=== PATIENT | male | born 1965 | race Caucasian/White ===

== ENCOUNTER 2017-11-09 11:08 | Emergency (ER) | payer SELFPAY ==
[~2017-11-09] VITALS: Ht 172.7 cm; Wt 75.0 kg
[2017-11-09 11:22] VITALS: BP 150/84; PULSE 90; RESP 16; TEMP 98; O2SAT 99
--- NOTE | 2017-11-09 11:44 | PD ---
HPI Chief Complaint: Skin Problem Time Seen by Provider: 11:39 Travel History International Travel<30 days: No Contact w/Intl Traveler<30days: No Traveled to known affect area: No History of Present Illness HPI 51-year-old male presents emergency department with bite to the left proximal ring finger with increased erythema, swelling, and warmth as well as pain. Patient states he was bit probably Thursday night, and he did not think much of it. Since then the area has become more painful, swollen, and erythematous as well as with increased warmth. He has decreased motion of the left hand secondary to pain. He denies fever, chills, or other symptoms. Patient's pain is rated as an 8 out of 10. His last tetanus was greater than 10 years ago. He has no history of MRSA. No known drug allergies. Patient denies IV drug use. PFSH Social History Alcohol Use: Yes Tobacco Use: No Substance Use: No Allergies-Medications (Allergen,Severity, Reaction): Coded Allergies: No Known Allergies (Unverified , 11/09/17) Reported Meds & Prescriptions Reported Meds & Active Scripts Active Ibuprofen 800 Mg Tab 800 Mg PO Q8H PRN Bactrim DS (Sulfamethoxazole-Trimethoprim) 800-160 Mg Tab 1 Tab PO BID Keflex (Cephalexin) 500 Mg Capsule 500 Mg PO Q6H 7 Days Review of Systems Except as stated in HPI: all other systems reviewed are Neg General / Constitutional: No: Fever, Chills Eyes: No: Visual changes HENT: No: Headaches Cardiovascular: No: Chest Pain or Discomfort Respiratory: No: Shortness of Breath Gastrointestinal: No: Nausea, Vomiting, Diarrhea, Abdominal Pain Genitourinary: No: Dysuria Musculoskeletal: No: Pain Skin: Positive Lesions (See history of present illness), No Rash Neurologic: No: Weakness Psychiatric: No: Depression Endocrine: No: Polydipsia Hematologic/Lymphatic: No: Easy Bruising Physical Exam Narrative GENERAL: Patient appears in no obvious distress SKIN: Warm and dry. Patient has what appears to be an insect bite to the dorsal left proximal ring finger with localized erythema, induration, warmth, and tenderness. Swelling extends up into the dorsal left hand and wrist. There is no obvious drainable abscess, or pointing. HEAD: Atraumatic. Normocephalic. EYES: Pupils equal and round. No scleral icterus. No injection or drainage. ENT: No nasal bleeding or discharge. Mucous membranes pink and moist. Pharynx is clear. Airways patent. NECK: Trachea midline. Supple and nontender. CARDIOVASCULAR: Regular rate and rhythm. RESPIRATORY: No accessory muscle use. Clear to auscultation. Breath sounds equal bilaterally. MUSCULOSKELETAL: Extremities without clubbing, cyanosis, or edema. No obvious deformities. 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 NEUROLOGICAL: Awake and alert. No obvious cranial nerve deficits. Motor grossly within normal limits. Five out of 5 muscle strength in the arms and legs. Normal speech. PSYCHIATRIC: Appropriate mood and affect; insight and judgment normal. Data Data Last Documented VS Vital Signs Date Time Temp Pulse Resp B/P (MAP) Pulse Ox O2 Delivery O2 Flow Rate FiO2 11/09/17 11:22 98.0 90 16 150/84 (106) 99 Orders Orders Clindamycin Inj (Cleocin Inj) (11/09/17 11:45) Ed Discharge Order (11/09/17 11:53) [facility] Medical Decision Making Medical Screen Exam Complete: Yes Emergency Medical Condition: Yes Differential Diagnosis Insect bite. Cellulitis. Early abscess. Possible MRSA. Narrative Course Patient is medically stable at time of exam. Patient is given tetanus 0.5 mg IM. Patient is given 600 mg clindamycin IM. Patient continued on Bactrim DS twice daily 7 days. Patient given Keflex 500 mg 3 times daily for 7 days. Patient is given ibuprofen 800 mg 3 times daily with food #30. Work note for today is given. Patient to follow-up if symptoms do not improve in the next 24-48 hours per Diagnosis Primary Impression: Infected insect bite of finger Additional Impression: Cellulitis Qualified Codes: L03.012 - Cellulitis of left finger Patient Instructions: Cellulitis (ED), General Instructions Departure Forms: Work Release Enter return to work date: November 12, 2017 Additional Instructions: Patient is given tetanus 0.5 mg IM. Patient is given 600 mg clindamycin IM. Patient continued on Bactrim DS twice daily 7 days. Patient given Keflex 500 mg 3 times daily for 7 days. Patient is given ibuprofen 800 mg 3 times daily with food #30. Work note for today is given. Patient to follow-up if symptoms do not improve in the next 24-48 hours per Med/Other Pt SpecificInfo: Prescription(s) given Scripts Ibuprofen (Ibuprofen) 800 Mg Tab 800 MG PO Q8H Y for Pain/Inflammation, #30 TAB 0 Refills Prov: Henrry Fong MD 11/09/17 Sulfamethoxazole-Trimethoprim (Bactrim DS) 800-160 Mg Tab 1 TAB PO BID for Infection, #14 TAB 0 Refills Prov: Henrry Fong MD 11/09/17 Cephalexin (Keflex) 500 Mg Capsule 500 MG PO Q6H for Infection for 7 Days, #28 CAP 0 Refills Prov: Henrry Fong MD 11/09/17 Disposition: 01 DISCHARGE HOME Condition: Stable Dejon Macdonald November 09, 2017 11:44
[2017-11-09] MEDS ORDERED: CLINDAMYCIN PHOS 600 MG/4 ML VIAL IM ONE (11:45)
[2017-11-09] MEDS ORDERED: CEPH-460 PO (11:46)
[2017-11-09] MEDS ORDERED: IBUP1TAB7 PO (11:46)
[2017-11-09] MEDS ORDERED: BACT800T5 PO (11:46)
[2017-11-09] MEDS ORDERED: TETANUS/DIPHTHERIA TOXOID ADULT 0.5 ML VIAL IM ONE (13:30)
== END 2017-11-09 14:00 | disposition home or self-care (01) ==
LOC: NEPK 11:08
DX: S60.465A Insect bite (nonvenomous) of left ring finger, initial encounter (principal); L03.012 Cellulitis of left finger; W57.XXXA Bitten or stung by nonvenomous insect and other nonvenomous arthropods, initial encounter; Z23 Encounter for immunization
CPT/HCPCS: 90471; 90714; 96372